=== PATIENT | female | born 1980 | race Caucasian/White ===

== ENCOUNTER 2023-09-28 16:10 | Emergency (ER) | payer OTHER ==
[~2023-09-28] VITALS: Ht 157.5 cm; Wt 71.3 kg
[2023-09-28 16:16] VITALS: BP 127/67; PULSE 68; RESP 16; TEMP 97.9; O2SAT 97
[2023-09-28] MEDS ORDERED: ONDA8TAB87 PO (16:34)
[2023-09-28] MEDS ORDERED: IBUP-2213 PO (16:34)
[2023-09-28 16:45] VITALS: BP 124/55; PULSE 68; RESP 16; TEMP 97.9; O2SAT 97
== END 2023-09-28 16:39 | disposition home or self-care (01) ==
LOC: MED 16:10
DX: R10.13 Epigastric pain (principal); R11.0 Nausea; Z98.890 Other specified postprocedural states
CPT/HCPCS: 99283

== ENCOUNTER 2023-11-21 12:27 | Emergency (ER) | payer OTHER ==
[~2023-11-21] VITALS: Ht 157.5 cm; Wt 71.2 kg
[~2023-11-21 12:27] MED LIST: IBUP-2213 PO; ONDA8TAB87 PO
[2023-11-21 12:39] VITALS: BP 140/81; PULSE 88; RESP 18; TEMP 98.1; O2SAT 97
[2023-11-21 14:09] LABS: FLU B ANTIGEN negative (NEGATIVE)
[2023-11-21 14:17] LABS: FLU A ANTIGEN POSITIVE (NEGATIVE)
[2023-11-21] MEDS ORDERED: BENZ-300 PO (14:19)
[2023-11-21] MEDS ORDERED: TAM75 PO (14:19)
[2023-11-21] MEDS ORDERED: IBUP-2213 PO (14:19)
== END 2023-11-21 14:29 | disposition home or self-care (01) ==
LOC: MED 12:27
DX: J10.1 Influenza due to other identified influenza virus with other respiratory manifestations (principal); J04.0 Acute laryngitis; H92.03 Otalgia, bilateral; Z20.822 Contact with and (suspected) exposure to COVID-19; Z79.899 Other long term (current) drug therapy
CPT/HCPCS: 87081; 99283